=== PATIENT | female | born 1970 ===

== ENCOUNTER 2018-12-30 13:15 | Outpatient (CLI) | payer OTHER ==
--- NOTE | 2018-12-30 14:36 | ULT ---
THYROID SONOGRAM: HISTORY: Thyroid nodule. FINDINGS: The right thyroid lobe is 3.8 cm length and contains small nodules. An oval cystic lesion measuring 0.6 cm centrally contains a small eccentric calcification. A complex partially cystic well-circumscr ibed 0.7 cm nodule is present near the superior pole. At the inferior pole is a cluster of heterogen eously predominantly solid nodules measuring 1.6 cm overall diameter. Isthmus is 0.2 cm. Left thyroid lobe is 4.2 cm with a hypoechoic oval 0.6 cm nodule medically with a tiny internal hyperechoic focus that may represent a small calcification. IMPRESSION: Small nonspecific bilateral thyroid lobe nodules. No dominant aggressive lesion is demonstrated. POS: [facility]
== END 2018-12-30 13:16 | disposition home or self-care (01) ==
LOC: BICULT 13:15
PROVIDERS: ATTEND Family Medicine
DX: R94.6 Abnormal results of thyroid function studies (principal); Z76.89 Persons encountering health services in other specified circumstances; E04.2 Nontoxic multinodular goiter
CPT/HCPCS: 76536

== ENCOUNTER 2019-01-22 15:14 | Outpatient (CLI) | payer OTHER ==
--- NOTE | 2019-01-22 16:10 | BD ---
DEXA BONE DENSITY STUDY: Date: 01/22/19 HISTORY: Osteoporosis screening. COMPARISON: None. FINDINGS: Lumbar Spine: BMD (g/cm2) L1 0.778 T-Score: -1.0 Z-Score: -1.3 L2 0.831 T-Score: -1.8 Z-Score: -1.1 L3 0.815 T-Score: -2.4 Z-Score: -1.7 L4 0.877 T-Score: -1.7 Z-Score: -0.9 L1-L4 0.828 T-Score: -2.0 Z-Score: -1.3 WHO Classification: Osteopenia. Left Femoral Neck: 0.663 T-Score: -1.7 Z-Score: -1.0 Total Femur: 0.896 T-Score: -0.4 Z-Score: 0.1 WHO Classification: Osteopenia. 10 YEAR FRACTURE RISK: Major osteoporotic fracture: 4.2% Hip fracture: 0.4% IMPRESSION: Osteopenia with fracture risk as above. POS: [facility]
== END 2019-01-22 15:15 | disposition home or self-care (01) ==
LOC: BICMAMMO 15:14
PROVIDERS: ATTEND Family Medicine
DX: Z13.820 Encounter for screening for osteoporosis (principal); M85.89 Other specified disorders of bone density and structure, multiple sites
CPT/HCPCS: 77080